=== PATIENT | male | born 2000 | race Two or more races ===

== ENCOUNTER 2018-04-18 19:52 | Emergency (ER) | payer OTHER ==
[2018-04-18] MEDS ORDERED: PLEASE ENTER HEIGHT AND WEIGHT MC SCH (20:30)
[2018-04-18] MEDS ORDERED: LORazepam 1MG TABLET PO ONE (20:30)
[2018-04-18 20:31] LABS: BASOPHILS # (AUTO) 0.04 x10^3/uL (0-0.3); BASOPHILS % (AUTO) 0 % (0-1); EOSINOPHILS # (AUTO) 0.06 x10^3/uL (0-0.8); EOSINOPHILS % (AUTO) 0 % (1-7); LYMPHOCYTES % (AUTO) 11 % (22-44); MD NO; MEAN CORPUSCULAR HEMOGLOBIN 30.2 pg (27.5-34.5); MEAN CORPUSCULAR HGB CONC 33.5 g/dL (33.2-36.2); MEAN CORPUSCULAR VOLUME 90.3 fL (81-97); MEAN PLATELET VOLUME 8.2 fL (7.4-10.4); MONOCYTES # (AUTO) 0.95 x10^3/uL (0-1.4); MONOCYTES % (AUTO) 6 % (2-9); NEUTROPHILS # (AUTO) 13.56 x10^3/uL (1.8-8.0); NEUTROPHILS % (AUTO) 83 % (42-75); PLATELET COUNT 300 x10^3/uL (130-400); RED BLOOD COUNT 5.79 x10^6/uL (4.38-5.82); RED CELL DISTRIBUTION WIDTH 13.4 % (9.4-14.8)
[2018-04-18] MEDS ORDERED: LORazepam 1MG TABLET ONE (20:33)
[2018-04-18 20:45] LABS: ALANINE AMINOTRANSFERASE 54 U/L (12-78); ALBUMIN 4.8 g/dL (3.4-5.0); ANION GAP 9 mmol/L (5-15); CALCIUM 9.6 mg/dL (8.5-10.1); CHLORIDE 105 mmol/L (98-107)
[2018-04-18 20:49] LABS: ALKALINE PHOSPHATASE 105 U/L (45-117); BILIRUBIN,TOTAL 0.5 mg/dL (0.2-1.0); FREE T4 (FREE THYROXINE) 1.11 ng/dL (0.76-1.46); TOTAL PROTEIN 9.1 g/dL (6.4-8.2); TROPONIN I < 0.015 ng/mL (0.000-0.045)
[2018-04-18 20:55] LABS: THYROID STIMULATING HORMONE 0.882 mIU/L (0.358-3.740)
[2018-04-18 21:46] VITALS: BP 123/73
== END 2018-04-18 22:04 | disposition home or self-care (01) ==
LOC: ED 22:00
DX: R00.0 Tachycardia, unspecified (principal); F41.1 Generalized anxiety disorder; R11.0 Nausea
CPT/HCPCS: 36415; 71045; 80053; 84439; 84443; 84484; 85025; 93005; 99285